=== PATIENT | female | born 1975 | race Caucasian/White ===

== ENCOUNTER 2016-10-18 17:45 | Emergency (ER) | payer OTHER ==
[2016-10-18 18:24] LABS: BILIRUBIN NEGATIVE (NEGATIVE); BLOOD NEGATIVE Ery/uL (NEGATIVE); CLARITY CLEAR (CLEAR); COLOR YELLOW (YELLOW); GLUCOSE (U) NORMAL (NORMAL); KETONE (U) NEGATIVE (NEGATIVE); LEUKOCYTES 1+ Leu/uL (NEGATIVE); NITRITE NEGATIVE (NEGATIVE); PROTEIN NEGATIVE (NEGATIVE); SPECIFIC GRAVITY <=1.005 (1.001-1.030); UROBILINOGEN 0.2 mg/dL (0.2-1.0)
[2016-10-18 19:33] LABS: BASOPHIL 0.2 % (0-2); HGB 13.7 g/dl (12.5-16.0); LYMPHOCYTE 21.7 % (15-48); MCH 33.3 pg (25.0-31.0); MCHC 36.1 g/dL (32.0-36.0); MCV 92.5 fL (78.0-100.0); MONOCYTE 9.1 % (0-12); MPV 8.5 fL (6.0-9.5); PLT 262 K/uL (150-400); RBC 4.11 M/uL (4.20-5.40); RDW 13.6 % (11.5-14.0)
[2016-10-18 19:34] LABS: WBC 12.4 K/uL (4.0-10.5)
[2016-10-18 19:57] LABS: CREATININE 1.4 mg/dL (0.5-1.0); POTASSIUM 3.8 mmol/L (3.5-5.1)
== END 2016-10-18 21:05 | disposition home or self-care (01) ==
LOC: FER 17:45
PROVIDERS: Emergency Medicine
DX: N30.00 Acute cystitis without hematuria (principal); Z88.1 Allergy status to other antibiotic agents; Z88.2 Allergy status to sulfonamides; Z88.8 Allergy status to other drugs, medicaments and biological substances
CPT/HCPCS: 36415; 80048; 81001; 85025; 87088; J1885